=== PATIENT | female | born 1945 | race Caucasian/White ===

== ENCOUNTER 2018-02-13 12:51 | Observation (INO) ==
[2018-02-13] MEDS: Sod Chloride 0.9% Inj 1,000 ML IV.CONT SCH (13:00)
[2018-02-13 13:25] LABS: Baso % (Auto) 0.6 % (0.0-2.0); Carbon Dioxide 27.7 meq/L (21.0-32.0); Eos # (Auto) 0.1 th/mm3 (0.0-0.4); Eos % (Auto) 1.5 % (0.0-4.0); Hematocrit 40.5 % (35.0-46.0); Hemoglobin 13.5 gm/dL (11.6-15.3); Lymph # (Auto) 1.1 th/mm3 (1.0-4.8); Lymph % (Auto) 17.1 % (9.0-44.0); Mean Corpuscular HGB Conc 33.3 % (32.0-36.0); Mean Corpuscular Volume 105.1 fL (80.0-100.0); Mean Platelet Volume 7.9 fL (7.0-11.0); Mono # (Auto) 0.6 th/mm3 (0.0-0.9); Mono % (Auto) 9.4 % (0.0-8.0); Neut # (Auto) 4.4 th/mm3 (1.8-7.7); Neut % (Auto) 71.4 % (16.0-70.0); Platelet Count 292 th/mm3 (150-450); Potassium 4.4 meq/L (3.5-5.1); Red Blood Count 3.86 mil/mm3 (4.00-5.30); Red Cell Distribution Width 12.4 % (11.6-17.2); White Blood Count 6.2 th/mm3 (4.0-11.0)
[2018-02-13 13:26] LABS: Calcium 9.1 mg/dL (8.5-10.1)
[2018-02-13 13:27] LABS: Activated Partial Thrombo Time 27.2 sec (23.4-31.7); Prothrombin Time 10.4 sec (9.8-11.6)
--- NOTE | 2018-02-13 13:37 | ED ---
HPI General Chief Complaint: Stroke Alert Stated Complaint: Stroke Alert Time Seen by Provider: 02/13/18 12:57 History of Present Illness HPI Narrative: This patient presents as a stroke alert. 1 hour ago she developed some right-sided visual changes. She describes a blurriness in the periphery of her right eye only. No amaurosis or eye pain or double vision. Left vision is normal. She denies motor weakness or sensory loss or speech slurring. She was a bit confused. She describes a pins and needles sensation on the right side of her face. Symptoms moderately severe. Duration 1 hour. No alleviating factors. No exacerbating factors. She takes a daily aspirin. Related Data Home Medications Medication Instructions Recorded Confirmed albuterol sulfate 2 puff INHALATION Q4-6H PRN 02/13/18 02/13/18 amlodipine 5 mg PO DAILY 02/13/18 02/13/18 aspirin 81 mg PO DAILY 02/13/18 02/13/18 potassium chloride 20 meq PO DAILY 02/13/18 02/13/18 ranolazine [Ranexa] 500 mg PO BID 02/13/18 02/13/18 torsemide 10 mg PO DAILY 02/13/18 02/13/18 tramadol 50 mg PO Q6H 02/13/18 02/13/18 zolpidem 5 mg PO HS PRN 02/13/18 02/13/18 Allergies Allergy/AdvReac Type Severity Reaction Status Date / Time No Known Allergies Allergy Verified 02/13/18 13:12 Review of Systems ROS: all other systems reviewed are negative [facility] Medical History Medical History Coronary artery spasm (Acute) HTN (hypertension) (Acute) Surgical History Surgical History H/O hand surgery (Acute) Social History Social History Substance History: No History of Abuse Smoking Status: Former smoker How Often Do You Have a Drink Containing Alcohol: Monthly or less Exam Narrative Exam Narrative: GENERAL: Well-nourished, well-developed patient in no apparent distress. SKIN: Focused skin assessment reveals no rash and nodules. Skin is Warm and dry. HEAD: Atraumatic. Normocephalic. EYES: Pupils equal and round. No scleral icterus. No injection or drainage. ENT: No nasal bleeding or discharge. Mucous membranes pink and moist. NECK: Trachea midline. No JVD. CARDIOVASCULAR: Regular rate and rhythm. No murmur appreciated. RESPIRATORY: No accessory muscle use. Clear to auscultation. Breath sounds equal bilaterally. GASTROINTESTINAL: Abdomen soft, non-tender, nondistended. Hepatic and splenic margins not palpable. MUSCULOSKELETAL: No obvious deformities. No clubbing. No cyanosis. No edema. NEUROLOGICAL: Awake and alert but seems a bit mentally slow/lethargic. No obvious cranial nerve deficits. Motor grossly within normal limits. Normal speech. Examination of visual field suggests she may loss in the upper outer quadrant of the right eye but her exam is inconsistent and she is very vague. PSYCHIATRIC: Appropriate mood and affect; insight and judgment seems a bit off . Course Initial Documented Vital Signs Pulse Rate 65 02/13/18 13:30 Respiratory Rate 16 02/13/18 13:30 Blood Pressure 142/66 H 02/13/18 13:30 Pulse Oximetry 99 02/13/18 13:30 Last Documented Vital Signs Pulse Rate 67 02/13/18 13:30 Respiratory Rate 16 02/13/18 13:30 Blood Pressure 142/66 H 02/13/18 13:30 Pulse Oximetry 100 02/13/18 13:30 Critical Care Time Critical Care Time: Yes Total Critical Care Time: 40 Attestation: Aggregate critical care time was 40 minutes. Time to perform other separately billable procedures was not included in the critical care time. My time did not include minutes spent treating any other patients simultaneously or on activities that did not directly contribute to the patient's treatment. The services I provided to this patient were to treat and/or prevent clinically significant deterioration that could result in: Permanent neurologic deficit, brain stem herniation, loss of airway I provided critical care services requiring my management, as noted below: Chart data review, documentation time, medication orders and management, vital sign assessments/reviewing monitor data, ordering and reviewing lab tests, ordering and interpreting/reviewing x-rays and diagnostic studies, care of the patient and discussion of the patient with the admitting physicians. Medical Decision Making MDM Narrative Medical decision making narrative: 72-year-old presents as a stroke alert. She has some vague visual field loss in the right side as well as some right-sided facial paresthesia. I reviewed in detail with neurologist Dr. Quigley. Patient went for CT of brain and CTAs of head and neck. Labs have been sent. I ordered the entire stroke alert protocol. Labs are reasonably normal. CT and CTAs of head and neck are negative. Reviewed with neurologist. Given Plavix 150 p.o. Discussed the radiologist. Brain CT is negative. Labs are reviewed. Discussed with the hospitalist who will admit Medical Screen Exam Complete: Yes Emergency Medical Condition: Yes Differential Diagnosis Differential Diagnosis: Ischemic CVA, hemorrhagic CVA, TIA Medical Records Medical records reviewed: Yes I reviewed the patient's medical records. Lab Data Lab results reviewed: Yes I reviewed the patient's lab results. Lab results narrative: CBC and metabolic studies are normal Result diagrams: 02/13/18 12:55 02/13/18 12:55 Lab Results 02/13/18 02/13/18 02/13/18 Range/Units 12:55 12:55 12:55 CBC w Diff Auto diff final WBC 6.2 (4.0-11.0) th/mm3 RBC 3.86 L (4.00-5.30) mil/mm3 Hgb 13.5 (11.6-15.3) gm/dL Hct 40.5 (35.0-46.0) % MCV 105.1 H (80.0-100.0) fL MCH 35.0 H (27.0-34.0) pg MCHC 33.3 (32.0-36.0) % RDW 12.4 (11.6-17.2) % Plt Count 292 (150-450) th/mm3 MPV 7.9 (7.0-11.0) fL Neut % (Auto) 71.4 H (16.0-70.0) % Lymph % (Auto) 17.1 (9.0-44.0) % Bowman % (Auto) 9.4 H (0.0-8.0) % Eos % (Auto) 1.5 (0.0-4.0) % Baso % (Auto) 0.6 (0.0-2.0) % Neut # (Auto) 4.4 (1.8-7.7) th/mm3 Lymph # (Auto) 1.1 (1.0-4.8) th/mm3 Bowman # (Auto) 0.6 (0.0-0.9) th/mm3 Eos # (Auto) 0.1 (0.0-0.4) th/mm3 Baso # (Auto) 0.0 (0.0-0.2) th/mm3 WBC Differential . Differential Comment . PT 10.4 (9.8-11.6) sec INR 1.0 Ratio APTT 27.2 (23.4-31.7) sec Fibrinogen 272 (227-377) mg/dL Sodium 137 (136-145) meq/L Potassium 4.4 (3.5-5.1) meq/L Chloride 103 (98-107) meq/L Carbon Dioxide 27.7 (21.0-32.0) meq/L Anion Gap 6 (5-15) meq/L BUN 14 (7-18) mg/dL Creatinine 1.20 H (0.50-1.00) mg/dL Estimated GFR 44 L (>89) mL/min Random Glucose 101 (74-106) mg/dL Calcium 9.1 (8.5-10.1) mg/dL TSH (0.358-3.740) uIU/mL 02/13/18 Range/Units 12:55 CBC w Diff WBC (4.0-11.0) th/mm3 RBC (4.00-5.30) mil/mm3 Hgb (11.6-15.3) gm/dL Hct (35.0-46.0) % MCV (80.0-100.0) fL MCH (27.0-34.0) pg MCHC (32.0-36.0) % RDW (11.6-17.2) % Plt Count (150-450) th/mm3 MPV (7.0-11.0) fL Neut % (Auto) (16.0-70.0) % Lymph % (Auto) (9.0-44.0) % Bowman % (Auto) (0.0-8.0) % Eos % (Auto) (0.0-4.0) % Baso % (Auto) (0.0-2.0) % Neut # (Auto) (1.8-7.7) th/mm3 Lymph # (Auto) (1.0-4.8) th/mm3 Bowman # (Auto) (0.0-0.9) th/mm3 Eos # (Auto) (0.0-0.4) th/mm3 Baso # (Auto) (0.0-0.2) th/mm3 WBC Differential Differential Comment PT (9.8-11.6) sec INR Ratio APTT (23.4-31.7) sec Fibrinogen (227-377) mg/dL Sodium (136-145) meq/L Potassium (3.5-5.1) meq/L Chloride (98-107) meq/L Carbon Dioxide (21.0-32.0) meq/L Anion Gap (5-15) meq/L BUN (7-18) mg/dL Creatinine (0.50-1.00) mg/dL Estimated GFR (>89) mL/min Random Glucose (74-106) mg/dL Calcium (8.5-10.1) mg/dL TSH 1.490 (0.358-3.740) uIU/mL Imaging Data Attestation: I personally reviewed and interpreted this imaging study as follows : My impression: Brain CT is negative. CT as of head and neck are normal Radiologist's impression: Head CT 02/13/18 13:12 CONCLUSION: 1. Unremarkable CT scan of the brain. Report was called by [Dr. Ace to Dr. Barclay at 1:36 PM.] Head CTA 02/13/18 13:12 CONCLUSION: 1. Unremarkable CTA of the brain. The findings were called by telephone by Dr. Ace to Dr. Quigley at 1:52 PM Neck CTA 02/13/18 13:12 CONCLUSION: 1. Small calcified plaque at the right carotid bifurcation. 2. Otherwise, unremarkable CTA of the carotids for patient's age. ECG Data EKG Prior to Arrival: No Attestation: I personally reviewed and interpreted this ECG as follows: Prior ECG tracings: not available for review Interpretation: EKG shows a sinus rhythm with normal rate and normal [place] interval and normal axis. No ST elevation Discharge Plan Discharge Disposition Patient Disposition: ED Admit(ED Internal Use Only) Discharge Order Discharge Orders: ED Use Only Admit Order (Routine); Ordered 02/13/18 Ordered By: Brandin Barclay Discharge Details Diagnosis: Acute ischemic stroke Physicians Team ED Provider: Brandin Barclay Primary Care Provider: Parish Chaparro Other Providers: Chase Quigley Rxs /Orders / Referrals /Forms Prescriptions: No Action torsemide 10 mg Tablet 10 mg PO DAILY RF: 0 amlodipine 5 mg Tablet 5 mg PO DAILY RF: 0 tramadol 50 mg Tablet 50 mg PO Q6H RF: 0 aspirin 81 mg Tablet,Chewable 81 mg PO DAILY RF: 0 zolpidem 5 mg Tablet 5 mg PO HS PRN (Reason: Sleep) RF: 0 albuterol sulfate 90 mcg/actuation Hfa Aerosol Inhaler 2 puff INHALATION Q4-6H PRN (Reason: Dyspnea) RF: 0 ranolazine [Ranexa] 500 mg Tablet Extended Release 12 Hr 500 mg PO BID RF: 0 potassium chloride 20 mEq Tablet Extended Release 20 meq PO DAILY RF: 0 Discharge Interventions Interventions: Vital Signs Last Done: 02/13/18 13:30 Status ED Status: Admitted Patient
--- NOTE | 2018-02-13 13:40 | CT ---
EXAM DATE: 02/13/2018 1:34 PM EST AGE/SEX: 72 years / Female INDICATIONS: Stroke alert. Right sided visual changes. Right facial tingling. CLINICAL DATA: This is the patient's initial encounter. Patient reports that signs and symptoms have been present for 1 day and indicates a pain score of 0/10. MEDICAL/SURGICAL HISTORY: None. None. RADIATION DOSE: 51.68 CTDI (mGy) COMPARISON: No prior exams available for comparison. TECHNIQUE: CT of the head without contrast. Using automated exposure control and adjustment of the mA and/or kV according to patient size, radiation dose was kept as low as reasonably achievable to ob tain optimal diagnostic quality images. DICOM format image data is available electronically for revi ew and comparison. FINDINGS: Cerebrum: The ventricles are normal for age. No evidence of midline shift, mass lesion, hemorrhage or acute infarction. No extraaxial fluid collections are seen. Posterior Fossa: The cerebellum and brainstem are intact. The 4th ventricle is midline. The cerebe llopontine angle is unremarkable. Extracranial: The visualized portion of the orbits is intact. Skull: The calvaria is intact. No evidence of skull fracture. CONCLUSION: 1. Unremarkable CT scan of the brain. Report was called by [Dr. Ace to Dr. Barclay at 1:36 PM.] Electronically signed by: Cruz Ace MD Board Certified Radiologist 02/13/2018 1:38 PM EST
--- NOTE | 2018-02-13 13:57 | CT ---
EXAM DATE: 02/13/2018 1:49 PM EST AGE/SEX: 72 years / Female INDICATIONS: Stroke alert. Right sided visual changes. Right facial tingling. CLINICAL DATA: This is the patient's initial encounter. Patient reports that signs and symptoms have been present for 1 day and indicates a pain score of 0/10. MEDICAL/SURGICAL HISTORY: None. None. RADIATION DOSE: 42.16 CTDI (mGy) ; Combined studies COMPARISON: No prior exams available for comparison. TECHNIQUE: Volumetric scanning was performed using a multi-row detector CT scanner during bolus infu na of 100 ml Visipaque 320 (iodixanol) nonionic water-soluble contrast as a cumulative dose for mu ltiple exams. The data was post processed with a variety of visualization algorithms including full volume maximum intensity projection, multi-planar sliding thin slab reformation, curved planar refor mation, and surface rendering techniques. Using automated exposure control and adjustment of the mA and/or kV according to patient size, radiation dose was kept as low as reasonably achievable to obtai n optimal diagnostic quality images. DICOM format image data is available electronically for review and comparison. FINDINGS: There is excellent visualization of the major intracranial arteries out to the second-order branch ve ssels. There is no evidence for aneurysm, vessel truncation or stenosis, and no evidence for vascula r malformation. CONCLUSION: 1. Unremarkable CTA of the brain. The findings were called by telephone by Dr. Ace to Dr. Quigley at 1:52 PM Electronically signed by: Cruz Ace MD Board Certified Radiologist 02/13/2018 1:55 PM EST
--- NOTE | 2018-02-13 14:08 | MB ---
cc: Chase Quigley MD DATE: 02/13/2018 HISTORY OF PRESENT ILLNESS: This is a 72-year-old right-handed woman with hypertension. She has got some coronary spasm, she tells me, that has been treated before. She takes 81 mg of aspirin a day. Years ago, she had an episode where she had a little bit of confusion, but it did not last for over an hour. Otherwise, she has been very healthy and then today she was going to look at a house and a building around noon and she felt a little bit dizzy and had some tingling on the right side of her face or an odd feeling there and she came in to complain that she could not see well out of the right eye or what the EMT said was double vision in the right eye, though she did complain of that here. No chest pain, palpitations, or headache. REVIEW OF SYSTEMS: She denies any diabetes, hypercholesterolemia, CO, AFib, Coumadin, CABG, stent, renal, hepatic, pulmonary disease, thyroid disease, lupus, ulcer, cancer, seizure, known stroke. SOCIAL HISTORY: Not a smoker or drinker. No narcotics. No Valium. Lives with her . FAMILY HISTORY: Positive for cancer in father. REVIEW OF SYSTEMS: Negative for seizure or stroke. PAST MEDICAL HISTORY: None. She has never been in this hospital before. PHYSICAL EXAMINATION: GENERAL: BP 150/70, sinus rhythm. HEART: Regular rhythm. I did not detect a murmur. There were no carotid bruits. HEENT: Pupils are equal. Visual faustin are full. Extraocular movements intact without nystagmus. There was no visual neglect nor was there any visual field diminished over to the right or to the left. Face was symmetric with normal sensation. Tongue was midline, although she thought maybe it felt a little different on the right side of her face in the cheek region, in the V2 region she could tell it was sharp there. Tongue was midline. Face moves symmetrically. There is no drift. NEUROLOGIC: She has normal strength in upper and lower extremities bilaterally. DTRs 1+ and symmetric throughout. Toes downgoing bilaterally. There is no ankle clonus. Pinprick intact in bilateral upper and lower extremities. Double simultaneous stimuli normal in the legs. She did not test [id number] or [id number]. She is generally slow to move and a little slow to answer, but her repetition, naming, calculations are all normal. She was alert and oriented x3. MEDICATIONS AT HOME: 1. Divigel transdermal gel pack. 2. Zolpidem. 3. Tramadol. 4. Torsemide. 5. Acebutolol. 6. Potassium. 7. Amlodipine. 7. Ranexa. 8. Niacin. 9. Some inhalers. 10. Aspirin 81 mg. 11. Levaquin 750 mg. She says she has not taken any pain medication for several years, however. LABORATORY DATA: Her CBC today is normal. Basic metabolic profile was normal. Coags are pending. IMPRESSION: Possibly a small stroke, with NIH stroke scale really is a 1 at this time, may be a little bit of numbness on the right side of her age. As such, I would not give her TPA. It appears that she is somewhat improved because initially, there was a stop at ER, that she could not see quite as well peripherally out of her vision. We will check a CT scan of her brain and also a CTA of the neck and [place] of [place]. Check an MRI. She takes a baby aspirin a day. If the CT is negative, we will give her some Plavix. I will be following her with you in the hospital. Keep her head of bed flat, IV fluids, blood pressure up. Another possibility would be a small complex partial seizure if she did take tramadol recently. Considering her symptoms, I would recommend stopping her hormone therapy. MD SANDY Wheeler/ottoniel , 01:32 PM , 01:41 PM
--- NOTE | 2018-02-13 14:10 | CT ---
EXAM DATE: 02/13/2018 2:05 PM EST AGE/SEX: 72 years / Female INDICATIONS: Stroke alert. Right sided visual changes. Right facial tingling. CLINICAL DATA: This is the patient's initial encounter. Patient reports that signs and symptoms have been present for 1 day and indicates a pain score of 0/10. MEDICAL/SURGICAL HISTORY: None. None. RADIATION DOSE: 42.16 CTDI (mGy) ; Combined studies COMPARISON: No prior exams available for comparison. TECHNIQUE: Volumetric scanning was performed using a multirow detector CT scanner during bolus infus ion of 100 ml Visipaque 320 (iodixanol) nonionic water-soluble contrast as a cumulative dose for mul tiple exams. The data was postprocessed with a variety of visualization algorithms including full-v olume maximum intensity projection, multiplanar sliding thin-slab reformation, curved-planar reformat ion, and surface-rendering techniques. Using automated exposure control and adjustment of the mA and /or kV according to patient size, radiation dose was kept as low as reasonably achievable to obtain o ptimal diagnostic quality images. DICOM format image data is available electronically for review and comparison. FINDINGS: Aortic Arch: There is a three-vessel origin of the great vessels from the aorta. No evidence of ost ial narrowing Right Carotid: The common carotid artery is intact. The carotid bulb has a normal configuration wit hout ulceration or narrowing. There is a small calcified plaque at the carotid bifurcation. The inte rnal carotid artery lumen is smooth without stenosis. The external carotid artery is intact. Left Carotid: The common carotid artery is intact. The carotid bulb has a normal configuration with out ulceration or narrowing. The internal carotid artery lumen is smooth without stenosis. The exte rnal carotid artery is intact. Vertebrals: The vertebral arteries have a symmetric diameter. No stenotic lesions are seen. Percent stenosis is calculated using the diameter of the stenotic region over the diameter of the nor mal distal internal carotid artery. CONCLUSION: 1. Small calcified plaque at the right carotid bifurcation. 2. Otherwise, unremarkable CTA of the carotids for patient's age. Electronically signed by: Cruz Ace MD Board Certified Radiologist 02/13/2018 2:08 PM EST
[2018-02-13 14:34] LABS: Bilirubin,Urine Negative (Negative); Clarity,Urine Clear (Clear); Color,Urine Yellow (Yellw/Straw); Glucose,Urine (UA) Negative (Negative); Leukocyte Esterase,Urine Negative (Negative); Nitrite,Urine Negative (Negative); Specific Gravity,Urine 1.015 (1.002-1.035); Urobilinogen,Urine 0.2 mg/dL (Less than 2)
[2018-02-13 14:58] LABS: Amphetamine Screen,Urine Neg (Neg)
[2018-02-13 14:59] LABS: Barbiturate Screen,Urine Neg (Neg)
[2018-02-13 15:03] LABS: Cannabinoid Screen,Urine Neg (Neg)
[2018-02-13 15:04] LABS: Cocaine Screen,Urine Neg (Neg)
[2018-02-13 15:17] LABS: Opiate Screen,Urine Neg (Neg)
[2018-02-13] MEDS ORDERED: Dextrose 50% in Water 50 ML Vial IV.PUSH PRN (15:29)
[2018-02-13] MEDS ORDERED: Gadobutrol PF 2 MMOL/2 ML Vial (for RAD) IV.SIG ONE (16:02)
--- NOTE | 2018-02-13 16:20 | MR ---
EXAM DATE: 02/13/2018 4:07 PM EST AGE/SEX: 72 years / Female INDICATIONS: CVA. Right arm weakness with right sided cephalgia. CLINICAL DATA: This is the patient's initial encounter. Patient reports that signs and symptoms have been present for 1 day and indicates a pain score of 0/10. MEDICAL/SURGICAL HISTORY: Hypertension. Hysterectomy. Hand surgery and cataracts. COMPARISON: [facility], CT HEAD W/O CONTRAST, 02/13/2018. . TECHNIQUE: Multiplanar, multisequence examination of the brain was performed without and with 5 ml Ga davist (gadobutrol) contrast as a single exam dose. FINDINGS: Cerebrum: The ventricles are normal for age. No evidence of midline shift, mass lesion, hemorrhage or acute infarction. No extraaxial fluid collections are seen. The pituitary gland and suprasellar cistern are normal in configuration. White Matter: Scattered punctate areas of deep white matter T2 prolongation which appear benign. Posterior Fossa: The cerebellum and brainstem are intact. The 4th ventricle is midline. The cerebel lopontine angle is unremarkable. The cerebellar tonsils are normal in position. Diffusion Imaging: No focal areas of restricted diffusion are seen. No evidence of acute infarction . Extracranial: The visualized portions of the orbits and paranasal sinuses are unremarkable. Post Contrast: No abnormal areas of parenchymal or dural enhancement. No evidence of blood-brain ba rrier breakdown. CONCLUSION: No acute intracranial findings Electronically signed by: Solo Alejo MD Board Certified Radiologist 02/13/2018 4:19 PM EST
[2018-02-13 18:35] LABS: Folate 14.5 ng/mL (3.1-17.5); Free T4 (Free Thyroxine) 1.14 ng/dL (0.76-1.46)
--- NOTE | 2018-02-13 18:48 | P.HPIM ---
History of Present Illness Primary Care Physician: Parish Chaparro MD History of Present Illness: 72-year-old female with a history of hypertension, coronary spasm with negative cardiac catheterization 3 years ago and negative stress testing 6 months ago who presents with acute onset of right sided facial paresthesias, dizziness, right arm paresthesias and left shoulder paresthesias around noon today. This has mostly resolved apart from some vague right face paresthesias currently. Patient reports history of chronic chest pain secondary to coronary spasm which is unchanged. Review of Systems All other systems reviewed negative except as stated in HPI PMFSH - History History Provided By: Patient, Sludge Control Attendant / EMT - Medical History Medical History: Medical History (Last Reviewed 02/13/18 @ 18:41 by Eleazar Youssef MD) Coronary artery spasm HTN (hypertension) - Surgical History Surgical History: Surgical History (Last Reviewed 02/13/18 @ 18:41 by Eleazar Youssef MD) H/O hand surgery - Family History Family History: Family History (Last Updated 02/13/18 @ 18:42 by Eleazar Youssef MD) Brother Coronary artery disease Mother Coronary artery disease Father Cancer - Social History I have reviewed the patient's Social History: Yes - Tobacco History Smoking Status: Former smoker - Alcohol History How Often Do You Have a Drink Containing Alcohol: Monthly or less - Substance Use History Substance History: No History of Abuse - Travel History Recent Travel in the [place] Within the Last 8 Weeks: Yes Recent Travel Out of the Country Within the Last 8 Weeks: No - Immunization History Tetanus Immunization: Unsure Medications and Allergies Active Medications: Active Medications Albuterol (Ventolin Hfa Inh) 2 puff INH Q4H PRN PRN Reason: Dyspnea Amlodipine Besylate (Norvasc) 5 mg PO DAILY [facility] Aspirin (Aspirin Chew) 81 mg PO DAILY [facility] Dextrose (D50w Vial) 50 ml IV.PUSH UNSCH PRN PRN Reason: per Hypoglycemic Protocol Glucagon (Glucagon Inj) 1 mg OTHER UNSCH PRN PRN Reason: per Hypoglycemic Protocol Sodium Chloride (Ns Inj) 1,000 mls @ 70 mls/hr IV.CONT .[id number] YOBANY Last Infusion: 02/13/18 18:10 Dose: 70 mls/hr Miscellaneous Medication ([facility] Information) 1 each OTHER UNSCH X1 PRN PRN Reason: PHARMACY DOCUMENTATION Stop: 02/14/18 13:33 Potassium Chloride (K-Dur) 20 meq PO DAILY [facility] Ranolazine (Ranexa) 500 mg PO BID [facility]OBANY Torsemide (Demadex) 10 mg PO DAILY [facility] Tramadol HCl (Ultram) 50 mg PO Q6H [facility] Last Admin: 02/13/18 18:38 Dose: Not Given Allergies Allergy/AdvReac Type Severity Reaction Status Date / Time No Known Allergies Allergy Verified 02/13/18 13:12 Home Medications Medication Instructions Recorded Confirmed Type albuterol sulfate 2 puff INHALATION Q4-6H PRN 02/13/18 02/13/18 History amlodipine 5 mg PO DAILY 02/13/18 02/13/18 History aspirin 81 mg PO DAILY 02/13/18 02/13/18 History potassium chloride 20 meq PO DAILY 02/13/18 02/13/18 History ranolazine [Ranexa] 500 mg PO BID 02/13/18 02/13/18 History torsemide 10 mg PO DAILY 02/13/18 02/13/18 History tramadol 50 mg PO Q6H 02/13/18 02/13/18 History zolpidem 5 mg PO HS PRN 02/13/18 02/13/18 History Exam Vital signs: Vital Signs 02/13/18 13:30 02/13/18 15:22 02/13/18 15:24 Temperature 98.4 F Pulse Rate 67 66 62 Respiratory Rate 16 16 16 Blood Pressure 142/66 H 127/54 L 142/61 H Pulse Oximetry 100 99 02/13/18 17:30 Temperature Pulse Rate 68 Respiratory Rate 16 Blood Pressure 128/68 Pulse Oximetry 97 Intake & Output 02/12/18 02/13/18 02/13/18 18:59 06:59 18:59 Intake Total 600 / 600 Balance 600 / 600 Weight 46.266 kg Intake: IV 600 / 600 NS Inj 1,000 ML @ 70 mls/hr IV. 600 / 600 CONT .[id number] [facility] Rx#: [id number] Narrative: GENERAL: Patient sitting up in bed. Appears comfortable. She is alert and oriented x3. SKIN: Warm and dry. HEAD: Atraumatic. Normocephalic. EYES: Pupils equal and round. No scleral icterus. No injection or drainage. ENT: No nasal bleeding or discharge. Mucous membranes pink and moist. NECK: Trachea midline. No JVD. CARDIOVASCULAR: Regular rate and rhythm. RESPIRATORY: No accessory muscle use. Clear to auscultation. Breath sounds equal bilaterally. GASTROINTESTINAL: Abdomen soft, non-tender, nondistended. Hepatic and splenic margins not palpable. MUSCULOSKELETAL: Extremities without clubbing, cyanosis, or edema. No obvious deformities. NEUROLOGICAL: Awake and alert. No obvious cranial nerve deficits. Motor grossly within normal limits. Five out of 5 muscle strength in the arms and legs. Normal speech. PSYCHIATRIC: Appropriate mood and affect; insight and judgment normal. Results - Labs CBC & Chem 7: 02/13/18 12:55 02/13/18 12:55 Labs: Short CBC 02/13/18 Range/Units 12:55 WBC 6.2 (4.0-11.0) th/mm3 Hgb 13.5 (11.6-15.3) gm/dL Hct 40.5 (35.0-46.0) % Plt Count 292 (150-450) th/mm3 BMP 02/13/18 12:55 Sodium 137 Potassium 4.4 Chloride 103 Carbon Dioxide 27.7 BUN 14 Creatinine 1.20 H Calcium 9.1 Urine 02/13/18 Range/Units 14:20 Urine Color Yellow (Yellw/Straw) Urine Clarity Clear (Clear) Urine pH 6.0 (5.0-8.5) Ur Specific [place] 1.015 (1.002-1.035) Urine Protein Negative (Neg-Trace) mg/dL Urine Glucose (UA) Negative (Negative) mg/dL - Imaging Impressions Head CT 02/13/18 13:12 CONCLUSION: 1. Unremarkable CT scan of the brain. Report was called by [Dr. Ace to Dr. Barclay at 1:36 PM.] Head CTA 02/13/18 13:12 CONCLUSION: 1. Unremarkable CTA of the brain. The findings were called by telephone by Dr. Ace to Dr. Quigley at 1:52 PM Neck CTA 02/13/18 13:12 CONCLUSION: 1. Small calcified plaque at the right carotid bifurcation. 2. Otherwise, unremarkable CTA of the carotids for patient's age. Head MRI 02/13/18 13:30 CONCLUSION: No acute intracranial findings Caprini VTE Risk Assessment Caprini VTE Risk Assessment: Moderate/High Risk (score >= 2) Caprini Risk Assessment Model: Point Value = 1 Point Value = 2 Point Value = 3 Point Value = 5 Age 41-60 Minor surgery BMI > 25 kg/m2 Swollen legs Varicose veins or History of unexplained or recurrent spontaneous Oral contraceptives or hormone replacement Sepsis (< 1 month) Serious lung disease, including pneumonia (< 1 month) Abnormal pulmonary function Acute myocardial infarction Congestive heart failure (< 1 month) History of inflammatory bowel disease Medical patient at bed rest Age 61-74 Arthroscopic surgery Major open surgery (> 45 min) Laparoscopic surgery (> 45 min) Malignancy Confined to bed (> 72 hours) Immobilizing plaster cast Central venous access Age >= 75 History of VTE Family history of VTE Factor V Leiden Prothrombin [id number] Lupus anticoagulant Anticardiolipin antibodies Elevated serum homocysteine Heparin-induced thrombocytopenia Other congenital or acquired thrombophilia Stroke (< 1 month) Elective arthroplasty Hip, pelvis, or leg fracture Acute spinal cord injury (< 1 month) Prophylaxis Regimen: Total Risk Factor Score Risk Level Prophylaxis Regimen 0-1 Low Early ambulation 2 Moderate Order ONE of the following: *Sequential Compression Device (SCD) *Heparin 5000 units SQ BID 3-4 Higher Order ONE of the following medications: *Heparin 5000 units SQ TID *Enoxaparin/Lovenox 40 mg SQ daily (WT < 150 kg, CrCl > 30 mL/min) *Enoxaparin/Lovenox 30 mg SQ daily (WT < 150 kg, CrCl > 10-29 mL/min) *Enoxaparin/Lovenox 30 mg SQ BID (WT < 150 kg, CrCl > 30 mL/min) AND/OR *Sequential Compression Device (SCD) 5 or more Highest Order ONE of the following medications: *Heparin 5000 units SQ TID (Preferred with Epidurals) *Enoxaparin/Lovenox 40 mg SQ daily (WT < 150 kg, CrCl > 30 mL/min) *Enoxaparin/Lovenox 30 mg SQ daily (WT < 150 kg, CrCl > 10-29 mL/min) *Enoxaparin/Lovenox 30 mg SQ BID (WT < 150 kg, CrCl > 30 mL/min) AND *Sequential Compression Device (SCD) Assessment and Plan - Plan //Acute TIA Imaging including MRI brain on admission negative -CT neck with small calcified plaque in the right carotid bifurcation, otherwise no stenosis. -Patient has been given Plavix in the ER. We will check echocardiogram, Holter monitor, telemetry overnight -Continue close monitoring, neuro checks. -We will continue on aspirin. Follow-up neurology recommendations. Appreciate assistance. //History of hypertension //History of coronary spasm -Given patient's negative CT angiogram neck as well as head for stenosis, we will continue home medications. Will hold torsemide due to slight impairment of kidney function creatinine 1.2. Monitor blood pressure. Discussed Condition With: Patient, nurse, ED physician, at bedside. Discharge Planning: Pending echocardiogram. Hopefully discharge tomorrow if cleared by neurology.
[2018-02-13] MEDS: Ranolazine 500 MG 12HR ER Tablet PO SCH (21:39)
[2018-02-14 07:45] LABS: Creatine Kinase 58 U/L (26-192)
[2018-02-14] MEDS: Sod Chloride 0.9% Inj 1,000 ML IV.CONT SCH (08:40)
[2018-02-14] MEDS: Ranolazine 500 MG 12HR ER Tablet PO SCH (08:40)
[2018-02-14] MEDS ORDERED: amLODIPine 5 MG Tablet PO SCH (09:00)
[2018-02-14 10:16] LABS: Cholesterol 206 mg/dL (120-200); Triglycerides 103 mg/dL (42-150)
[2018-02-14 10:17] LABS: HDL Cholesterol 85.6 mg/dL (40.0-60.0); LDL Cholesterol,Calculated 100 mg/dL (0-99)
--- NOTE | 2018-02-14 11:31 | ECHRPT ---
Indication: CVA/TIA CONCLUSIONS Normal left ventricular size. Wall thickness is normal. The left ventricular systolic function is no rmal with an estimated ejection fraction in the range of 60-65%. No regional wall motion abnormalities are present. Normal valves. BP: / HR: Rhythm: MEASUREMENTS (Male / Female) Normal Values Technical Quality:Good 2D ECHO LV Diastolic Diameter PLAX 3.9 cm 4.2 - 5.9 / 3.9 - 5.3 cm LV Systolic Diameter PLAX 2.2 cm IVS Diastolic Thickness 0.7 cm 0.6 - 1.0 / 0.6 - 0.9 cm LVPW Diastolic Thickness 0.8 cm 0.6 - 1.0 / 0.6 - 0.9 cm LV Relative Wall Thickness 0.4 RV Internal Dim ED PLAX 2.3 cm LVOT Diameter 1.8 cm Aortic Root Diameter 2.7 cm LA Systolic Diameter LX 2.1 cm 3.0 - 4.0 / 2.7 - 3.8 cm DOPPLER AV Peak Velocity 128.0 cm/s AV Peak Gradient 6.6 mmHg LVOT Peak Velocity 90.8 cm/s LVOT Peak Gradient 3.3 mmHg AV Area Cont Eq pk 1.8 cm Mitral E Point Velocity 81.9 cm/s Mitral A Point Velocity 89.8 cm/s Mitral E to A Ratio 0.9 LV E' Lateral Velocity 10.0 cm/s Mitral E to LV E' Lateral Ratio 8.2 LV E' Septal Velocity 8.3 cm/s Mitral E to LV E' Septal Ratio 9.9 TR Peak Velocity 195.0 cm/s TR Peak Gradient 15.2 mmHg Right Atrial Pressure 10.0 mmHg Pulmonary Artery Systolic Pressu 25.2 mmHg Right Ventricular Systolic Press 25.2 mmHg PV Peak Velocity 76.0 cm/s PV Peak Gradient 2.3 mmHg FINDINGS LEFT VENTRICLE Normal left ventricular size. Wall thickness is normal. The left ventricular systolic function is no rmal with an estimated ejection fraction in the range of 60-65%. No regional wall motion abnormalities are present. RIGHT VENTRICLE Normal right ventricular size and systolic function. LEFT ATRIUM The left atrial size is normal. RIGHT ATRIUM The right atrial size is normal. ATRIAL SEPTUM Normal atrial septal thickness without atrial level shunting by limited color doppler interrogation. AORTA The aortic root and proximal ascending aorta are normal in size on limited imaging. MITRAL VALVE Structurally normal mitral valve. No mitral valve stenosis or regurgitation. AORTIC VALVE Trileaflet aortic valve. No aortic valve stenosis or regurgitation. TRICUSPID VALVE Structurally normal tricuspid valve. No tricuspid valve stenosis or regurgitation. PULMONARY VALVE No pulmonary valve regurgitation or stenosis. VESSELS The inferior vena cava is normal in size. PERICARDIUM No pericardial effusion. Maxwell Chen MD (Electronically Signed) Final Date:14 February 2018 11:29
--- NOTE | 2018-02-14 14:50 | MG ---
cc: James Pettit MD, PhD DATE OF STUDY: 02/06/2018. TEST NUMBER: [id number] inside-out. TECHNIQUE: 17-channel electroencephalogram. DESCRIPTION: The background rhythm reveals a symmetrical alpha activity. Frequency is 8 Hz. During drowsiness, there is slowing in the theta range. There are no lateralizing features. There are no epileptiform discharges. Hyperventilation was not done. Occasional muscle artifact is identified. Photic results in a modest driving response. INTERPRETATION: Normal electroencephalogram. James Pettit MD, PhD GAETANO/ct , 01:58 PM , 02:03 PM
[2018-02-14 15:02] LABS: Anti-Nuclear Antibody Screen Neg (Neg)
--- NOTE | 2018-02-14 16:08 | P.PNIM ---
Subjective Interval history: Patient says she is feeling back to normal. Denies any chest pain or shortness of breath. Denies nausea vomiting. Denies any unilateral weakness. Does report some transient right sided headache previously which has resolved. Denies any dizziness. Says she feels like going home. Physical Exam Vital signs: Vital Signs 02/13/18 17:30 02/13/18 20:00 02/13/18 20:35 Temperature 97.4 F L Pulse Rate 68 67 67 Respiratory Rate 16 18 Blood Pressure 128/68 127/64 Pulse Oximetry 97 96 100 02/13/18 22:19 02/13/18 23:30 02/14/18 01:08 Temperature 97.4 F L Pulse Rate 67 Respiratory Rate 18 18 Blood Pressure 112/59 L Pulse Oximetry 96 98 02/14/18 04:00 02/14/18 05:28 02/14/18 07:45 Temperature 97.7 F Pulse Rate 63 Respiratory Rate 16 18 Blood Pressure 121/57 L Pulse Oximetry 98 98 02/14/18 08:00 02/14/18 12:00 Temperature 97.8 F 97.6 F Pulse Rate 67 65 Respiratory Rate 20 20 Blood Pressure 113/57 L 108/49 L Pulse Oximetry 96 98 Intake & Output 02/13/18 02/14/18 02/14/18 18:59 06:59 18:59 Intake Total 600 / 600 1000 / 1000 Balance 600 / 600 1000 / 1000 Weight 46.266 kg 50.6 kg Intake: IV 600 / 600 1000 / 1000 NS Inj 1,000 ML @ 70 mls/hr IV. 600 / 600 1000 / 1000 CONT .[id number] [facility] Rx#: [id number] Other: # Voids 2 Weight On Admission 46.266 kg Narrative: GENERAL: Patient sitting up in bed. Appears comfortable. Alert and oriented x3. SKIN: Warm and dry. HEAD: Normocephalic. EYES: No scleral icterus. No injection or drainage. NECK: Supple, trachea midline. No JVD. CARDIOVASCULAR: Regular rate and rhythm without murmurs, gallops, or rubs. RESPIRATORY: Breath sounds equal bilaterally. No accessory muscle use. GASTROINTESTINAL: Abdomen soft, non-tender, nondistended. MUSCULOSKELETAL: No cyanosis, or edema. BACK: Nontender without obvious deformity. No CVA tenderness. Results - Labs CBC & Chem 7: 02/13/18 12:55 02/13/18 12:55 Laboratory Results - last 24 hr 02/13/18 02/13/18 02/13/18 12:55 12:55 16:28 POC Glucose 102 Total Bilirubin Direct Bilirubin Indirect Bilirubin AST ALT Alkaline Phosphatase Total Creatine Kinase Troponin I Total Protein Albumin Triglycerides Cholesterol LDL Cholesterol, Calc HDL Cholesterol Cholesterol/HDL Ratio Vitamin B12 Greater than 2000 H Folate 14.5 Free T4 1.14 TRAV Screen Neg RPR Nonreactive 02/13/18 02/14/18 02/14/18 21:42 06:50 06:50 POC Glucose 79 Total Bilirubin 0.4 Direct Bilirubin 0.1 Indirect Bilirubin 0.3 AST 18 ALT 20 Alkaline Phosphatase 36 L Total Creatine Kinase 58 Troponin I Less than 0.02 L Total Protein 6.0 L Albumin 3.0 L Triglycerides 103 Cholesterol 206 H LDL Cholesterol, Calc 100 H HDL Cholesterol 85.6 H Cholesterol/HDL Ratio 2.40 Vitamin B12 Folate Free T4 TRAV Screen RPR 02/14/18 02/14/18 08:41 11:16 POC Glucose 154 H 129 H Total Bilirubin Direct Bilirubin Indirect Bilirubin AST ALT Alkaline Phosphatase Total Creatine Kinase Troponin I Total Protein Albumin Triglycerides Cholesterol LDL Cholesterol, Calc HDL Cholesterol Cholesterol/HDL Ratio Vitamin B12 Folate Free T4 TRAV Screen RPR - Imaging Impressions Head MRI 02/13/18 13:30 CONCLUSION: No acute intracranial findings Assessment and Plan - Plan //Acute TIA Imaging including MRI brain on admission negative -CT neck with small calcified plaque in the right carotid bifurcation, otherwise no stenosis. -Patient has been given Plavix in the ER. We will check echocardiogram, Holter monitor, telemetry overnight -Continue close monitoring, neuro checks. -We will continue on aspirin. Follow-up neurology recommendations. Appreciate assistance. = 02/14. Negative EEG, echocardiogram without thrombus. Will continue on aspirin, Plavix. Holter pending. A1c still pending. Follow-up with neurology and primary care as outpatient. Awaiting neurology clearance. //History of hypertension //History of coronary spasm -Given patient's negative CT angiogram neck as well as head for stenosis, we will continue home medications. Will hold torsemide due to slight impairment of kidney function creatinine 1.2. Monitor blood pressure. Discharge Planning: Home pending neurology clearance. Pending A1c, Holter monitor. Follow-up with neurology and primary care as outpatient.
[2018-02-14 17:30] LABS: Hemoglobin A1c 5.2 % (4.3-6.0)
--- NOTE | 2018-02-14 20:50 | ECG ---
Date Performed: 02/13/2018 Time Performed: 12:58:10 PTAGE: 72 years EKG: Sinus rhythm PROLONGED QT INTERVAL ABNORMAL ECG INTERPRETATION BASED ON A DEFAULT AGE OF 42 YEARS NO PREVIOUS TRACING DOCTOR: Mary Nava Interpretating Date/Time 02/14/2018 20:43:19
--- NOTE | 2018-02-15 22:46 | HM ---
Date Performed: 02/13/2018 Time Performed: 20:23:00 HOOKUP DATE: 02/13/18 08:23:00 PM [facility] ANALYSIS START TIME: 02/13/2018 8:28:00 PM ANALYSIS END TIME: 02/14/2018 5:26:10 PM PATIENT AGE: 72 PATIENT HEIGHT PATIENT WEIGHT DRUG LIST PATIENT DIAGNOSIS: STROKE ALERT TEST NARRATIVE: The patient's average heart rate was 66 BPM. No episodes of tachycardia wer e noted. No episodes of bradycardia were noted. No pauses exceeding 2.0 seconds were noted. 15 ventricular ectopics, which represented < 1% of the total beat count, were noted. The highest travis tricular ectopic frequency occurred from 07:00 AM to 08:00 AM Fri. During this time 4 VE(s) occurred . Ventricular ectopics were observed as 13 isolated beat(s) and as 1 couplet(s). No runs were noted . 20 supraventricular ectopics, which represented < 1% of the total beat count, were noted. The highest supraventricular ectopic frequency occurred from 09:00 AM to 10:00 AM Fri. During this time 3 SVE(s) occurred. No episodes of ST depression (defined as -1.0 mm or more) were noted in channe l 1. No episodes of ST depression (defined as -1.0 mm or more) were noted in channel 2. No episodes of ST depression (defined as -1.0 mm or more) were noted in channel 3. NO DIARY MAINTAINED TEST INTERPRETATION: 1. Predominant underlying rhythm is sinus 2. Occasional PACs and PVCs note d 3. Two episodes of 5 beats of Afib with RVR was noted 4. No pauses greater than 2 sec noted Signed by : William Preciado
== END 2018-02-14 17:47 | disposition home or self-care (01) ==
LOC: PHED 12:51 → PHEDA 14:27 → INTOOBSV 14:27 → PHEDA 18:20 → PH3 18:58
PROVIDERS: ADMIT Internal Medicine; ATTEND Internal Medicine
DX: I63.9 Cerebral infarction, unspecified; R07.9 Chest pain, unspecified; Z80.9 Family history of malignant neoplasm, unspecified; Z79.82 Long term (current) use of aspirin; G89.29 Other chronic pain; I20.1 Angina pectoris with documented spasm; Z82.49 Family history of ischemic heart disease and other diseases of the circulatory system; R94.31 Abnormal electrocardiogram [ECG] [EKG]; I10 Essential (primary) hypertension; Z87.891 Personal history of nicotine dependence; I65.21 Occlusion and stenosis of right carotid artery; R42 Dizziness and giddiness
CPT/HCPCS: 70450; 70496; 70498; 70553; 80048; 80061; 80076; 80307; 81001; 82140; 82550; 82607; 82746; 82948; 82962; 83036; 83918; 83921; 84439; 84443; 84484; 85025; 85384; 85610; 85651; 85652; 85730; 86038; 86592; 92610; 93005; 93225; 93306; 95819; 96360; 96361; 97162; 97165; 99291; A9585; G0195; G0378; G8987; G8988; G8989; G8996; G8997; G8998; J7030; Q9967